=== PATIENT | female | born 1990 | race African-American/Black ===

== ENCOUNTER 2019-06-04 21:07 | Emergency (ER) | payer SELFPAY ==
[2019-06-04] MEDS ORDERED: Cyclobenzaprine 10 MG TAB ONE (21:49)
[2019-06-04] MEDS ORDERED: Ketorolac Tromethamine 60 MG/2 ML VIAL ONE (21:49)
== END 2019-06-04 22:10 | disposition home or self-care (01) ==
LOC: SCSER 21:07
DX: M54.5 Low back pain (principal); I10 Essential (primary) hypertension; J45.909 Unspecified asthma, uncomplicated; F41.9 Anxiety disorder, unspecified; F17.210 Nicotine dependence, cigarettes, uncomplicated
CPT/HCPCS: 96372; 99283; J1885

== ENCOUNTER 2020-01-08 14:36 | Emergency (ER) | payer SELFPAY ==
[2020-01-08 15:31] LABS: #Basophils 0.1 thou/uL (0.0-0.2); #Eosinphils 0.1 thou/uL (0.0-0.7); #Lymphocytes 1.8 thou/uL (1.20-3.40); #Monocytes 0.7 thou/uL (0.11-0.59); %Basophils 0.8 % (0.0-1.0); %Eosinophils 0.9 % (0.0-10.0); %Lymphocytes 16.8 % (21.0-51.0); %Monocytes 6.8 % (0.0-10.0); %Neutrophils 74.6 % (42.0-75.0); Mean Corpuscular HGB CONC 32.4 g/dL (32.0-36.0); Mean Corpuscular Hemoglobin 24.2 pg (27.0-31.0); Mean Corpuscular Volume 74.7 fL (78.0-98.0); Mean Platelet Volume 9.8 fL (7.4-10.4); Platelet Count 244 thou/uL (130-400); RBC Distribution Width 15.9 % (11.5-14.5); Red Blood Cell (RBC) Count 4.56 mill/uL (4.20-5.40); White Blood Cell (WBC) Count 10.8 thou/uL (4.8-10.8)
--- NOTE | 2020-01-08 15:44 | RAD ---
RADIOGRAPH CHEST 1 VIEW: DATE: 01/08/2020 HISTORY: 29-year-old female with chest pain FINDINGS: The visualized lung padilla are clear. The cardiomediastinal silhouette and hilar shadows are normal. The lateral costophrenic angles are sharp. The osseous structures appear normal. There is no pneumothorax. IMPRESSION: Negative.
[2020-01-08 15:49] LABS: ALT (SGPT) 9 U/L (8-55); AST (SGOT) 11 U/L (5-34); Alkaline Phosphatase 83 U/L (40-110); Anion Gap 11 mmol/L (10-20); BUN (Urea Nitrogen) 9 mg/dL (7.0-18.7); Bilirubin, Total 1.1 mg/dL (0.2-1.2); CK (CPK) 82 U/L (29-168); Calc. Creatinine Clearance 0 mL/min (70-130); Calcium 9.5 mg/dL (7.8-10.44); Carbon Dioxide 27 mmol/L (22-29); Chloride 103 mmol/L (98-107); Estimated GFR-MDRD 77; Globulin 3.2 g/dL (2.4-3.5); Glucose 76 mg/dL (70-105); Potassium 3.9 mmol/L (3.5-5.1); Protein, Total 7.2 g/dL (6.0-8.3); Sodium 137 mmol/L (136-145)
[2020-01-08 15:56] LABS: MDiff Complete? YES; Microcytosis SLIGHT = 6-15 cells (100X) (0-5/hpf); Platelet Morphology Comment Appears Adequate; Polychromasia SLIGHT = 2-3 cells (100X) (0-2/hpf); Target Cells SLIGHT = 2-5 cells (100X) (0-1/hpf); Tear Drops SLIGHT = 2-5 cells (100X) (0-1/hpf)
--- NOTE | 2020-01-08 16:59 | CT ---
CTA CHEST WITH CONTRAST: 01/08/20 Axial tomograms obtained following a pulmonary angio protocol with multiplanar reconstructions and 3D postprocessing. INDICATIONS: Chest pain with elevated D-dimer. Assess for pulmonary embolus. FINDINGS: Pulmonary artery opacification is not optimal. There is also soft tissue attenuation artifact which m ildly degrades the study. However, no evidence of pulmonary embolus identified. Thoracic aorta is unremarkable. The mediastinum is unremarkable. The lung padilla are clear. There is no evidence of infiltrate. Images through upper abdomen unremarka ble. IMPRESSION: 1. No evidence of pulmonary embolus. 2. No acute lung process identified. POS: [facility]
== END 2020-01-08 17:57 | disposition home or self-care (01) ==
LOC: ERS 14:36
DX: R07.9 Chest pain, unspecified (principal); I10 Essential (primary) hypertension; F41.9 Anxiety disorder, unspecified; J45.909 Unspecified asthma, uncomplicated; F17.210 Nicotine dependence, cigarettes, uncomplicated; Z79.899 Other long term (current) drug therapy
CPT/HCPCS: 36415; 71045; 71275; 80053; 82550; 84484; 85025; 85379; 93005

== ENCOUNTER 2024-03-23 07:28 | Inpatient (IN) | payer OTHER ==
[2024-03-23] MEDS ORDERED: levETIRAcetam 500 MG (5 mL) VIAL ONE (07:55)
[2024-03-23] MEDS ORDERED: Aspirin Chewable 81 MG TAB ONE ×2 (07:55→08:01)
[2024-03-23] MEDS ORDERED: Etomidate 40 MG (20 mL) VIAL ONE (08:30)
[2024-03-23] MEDS ORDERED: Rocuronium Bromide 10 MG/ML (10ML VIAL) ONE (08:30)
[2024-03-23] MEDS ORDERED: Ondansetron PF 4 MG/2 ML Vial ONE (08:31)
[2024-03-23] MEDS ORDERED: niCARdipine 25 MG/10 ML SDV ONE (08:44)
[2024-03-23] MEDS ORDERED: Propofol 1,000 MG/100 ML VIAL IV ONE (08:46)
[2024-03-23 08:52] LABS: #Basophils 0.04 10x3/uL (0.0-0.2); %Basophils 0.5 % (0.0-1.0); %Eosinophils 1.2 % (0.0-10.0); %Lymphocytes 25.1 % (21.0-51.0); %Monocytes 7.4 % (0.0-10.0); %Neutrophils 65.6 % (42.0-75.0); Hematocrit 33.2 % (36.0-47.0); Hemoglobin 10.3 g/dL (12.0-16.0); Mean Corpuscular Hemoglobin 21.2 pg (27.0-31.0); Mean Corpuscular Volume 68.3 fL (78.0-98.0); Mean Platelet Volume 9.7 fL (7.4-10.4); Platelet Count 288 10x3/uL (130-400); RBC Distribution Width 18.6 % (11.5-14.5); Red Blood Cell (RBC) Count 4.86 mill/uL (4.20-5.40)
[2024-03-23 08:58] LABS: ALT (SGPT) 12 U/L (8-55); AST (SGOT) 20 U/L (5-34); Albumin 3.4 g/dL (3.5-5.0); Alkaline Phosphatase 70 U/L (40-110); Anion Gap 10 mmol/L (10-20); BUN (Urea Nitrogen) 11 mg/dL (7.0-18.7); Bilirubin, Total 0.5 mg/dL (0.2-1.2); Calc. Creatinine Clearance 0 mL/min (70-130); Calcium 9.1 mg/dL (7.8-10.44); Carbon Dioxide 24 mmol/L (22-29); Chloride 105 mmol/L (98-107); Estimated GFR 96; Globulin 3.7 g/dL (2.4-3.5); Glucose 99 mg/dL (70-105); Potassium 4.1 mmol/L (3.5-5.1); Protein, Total 7.1 g/dL (6.0-8.3); Sodium 135 mmol/L (136-145)
[2024-03-23 08:59] LABS: Lipase 6 U/L (8-78); Magnesium 1.8 mg/dL (1.6-2.6)
[2024-03-23 09:00] LABS: Acetaminophen Less than 10 mcg/mL (10.0-30.0); Alcohol Less than 10.0 mg/dL (Less than 10); Salicylate Less than 8.0 mg/dL (15.0-30.0)
[2024-03-23 09:03] LABS: Troponin I Less than 0.010 ng/mL (< 0.028)
[2024-03-23] MEDS ORDERED: niCARdipine 25 MG in Sodium Chloride 0.9% 250 ML 250 ML IVPB PRN (09:10)
[2024-03-23] MEDS ORDERED: Labetalol HCl 100 MG/20 ML VIAL SLOW IVP PRN ×2 (09:10)
[2024-03-23] MEDS ORDERED: hydrALAZINE 20 MG/ML VIAL SLOW IVP PRN ×2 (09:10)
[2024-03-23] MEDS ORDERED: Electrolyte Replacement Protocol 1 EACH IVPB PRN (09:10)
[2024-03-23] MEDS ORDERED: Lidocaine 1% (PF) 30 ML VIAL ONE (09:13)
[2024-03-23] MEDS ORDERED: Heparin 10,000 UNITS/ 10 ML VIAL ONE (09:13)
[2024-03-23] MEDS ORDERED: Tenecteplase 50 MG ONE (09:14)
[2024-03-23] MEDS ORDERED: Ventilator Sedation Protocol 1 EACH FS PRN (09:15)
[2024-03-23] MEDS ORDERED: Midazolam HCl 2 mg/2 ml Vial ONE ×2 (09:22→10:58)
[2024-03-23 09:34] LABS: Bacteria/HPF Rare-Few HPF (None Seen); Bilirubin Negative (Negative); Blood, Urine Negative (Negative); CAUTI Indications for Culture Alt mental st,lethar; Clarity Clear (Clear); Glucose, Urine (Dipstick) Normal (Negative); Ketone, Urine Negative (Negative); Leukocyte 250 Leu/uL (Negative); Nitrite Negative (Negative); Protein, Urine (Dipstick) Negative (Neg-Trace); RBC/HPF 0-3 HPF (0-3); Specific Gravity, Urine 1.039 (1.002-1.036); Squamous Epithelial 0-3 HPF (0-3); Urobilinogen Normal mg/dL (Less than 2); pH, Urine 5.5 (5.0-9.0)
[2024-03-23 09:35] LABS: Urine Culture Reflex No No
[2024-03-23 09:40] LABS: Amphetamine Not Detected (NotDetected); Barbiturates Screen Not Detected (NotDetected); Benzodiazepine Screen Not Detected (NotDetected); Cocaine Metabolite Screen Not Detected (NotDetected); Methadone Not Detected (NotDetected); Methamphetamine Not Detected (NotDetected); Opiate Screen Not Detected (NotDetected); Oxycodone Screen Not Detected (NotDetected); Phencyclidine (PCP) Not Detected (NotDetected); THC/Cannabinoid Screen Detected (NotDetected); Tricyclic Screen Not Detected (NotDetected)
[2024-03-23] MEDS ORDERED: Propofol BOLUS 1,000 MG/100 ML VIAL IV PRN (09:45)
[2024-03-23] MEDS ORDERED: Morphine 2 MG/ML VIAL SLOW IVP PRN (09:45)
[2024-03-23] MEDS ORDERED: Fentanyl BOLUS 250 ML IVPB PRN (09:45)
[2024-03-23 09:46] LABS: Anisocytosis MODERATE=16-30 cells HPF (0-5); Hypochromia SLIGHT = 6-15 cells HPF (0-5); Microcytosis SLIGHT = 6-15 cells HPF (0-5); Ovalocytes SLIGHT = 2-5 cells HPF (0-1); Platelet Adequacy Comment Platelets Decreased; Polychromasia SLIGHT = 2-3 cells HPF (0-2)
[2024-03-23] MEDS ORDERED: Electrolyte Replacement Protocol FS PRN (10:00)
[2024-03-23] MEDS: niCARdipine 25 MG in Sodium Chloride 0.9% 250 ML 250 ML IVPB PRN (11:07)
[2024-03-23] MEDS: Propofol 1,000 MG/100 ML VIAL IV PRN (11:20)
[2024-03-23] MEDS ORDERED: Iopamidol-370 76% 500 ML MDV (1 ML CHARGE) ONE (11:42)
[2024-03-23] MEDS: Magnesium 2 GM/50 ML(in water) 2 GM in Premix 1 BAG IVPB SCH (11:50)
[2024-03-23] MEDS: Sodium Chloride 0.9% 1,000 ML IV SCH (12:00)
[2024-03-23 12:15] VITALS: BMI 40.0
[2024-03-23] MEDS: Lorazepam 2 MG/ML VIAL SLOW IVP PRN (13:05)
[2024-03-23] MEDS: Fentanyl CADD 100 ML IV SCH (13:27)
[2024-03-23] MEDS: Rosuvastatin 20 MG TAB PO SCH (20:11)
[2024-03-24 06:33] LABS: #Basophils Less than 0.03 10x3/uL (0.0-0.2); %Basophils 0.1 % (0.0-1.0); %Eosinophils 0.3 % (0.0-10.0); %Lymphocytes 8.7 % (21.0-51.0); %Monocytes 5.5 % (0.0-10.0); %Neutrophils 84.9 % (42.0-75.0); Hematocrit 30.3 % (36.0-47.0); Hemoglobin 9.2 g/dL (12.0-16.0); Mean Corpuscular HGB CONC 30.4 g/dL (32.0-36.0); Mean Corpuscular Hemoglobin 21.3 pg (27.0-31.0); Mean Corpuscular Volume 70.3 fL (78.0-98.0); Mean Platelet Volume 10.1 fL (7.4-10.4); Platelet Count 274 10x3/uL (130-400); RBC Distribution Width 18.8 % (11.5-14.5); Red Blood Cell (RBC) Count 4.31 mill/uL (4.20-5.40)
[2024-03-24 06:40] LABS: Hemoglobin A1c 5.3 % (4.0-6.0)
[2024-03-24 06:46] LABS: INR-International Normal Ratio 1.2; PTT 30.2 sec (22.9-36.1); Prothrombin Time 15.6 sec (12.0-14.7)
[2024-03-24 06:54] LABS: D-Dimer Test 4.91 mcg/mL (0.27-0.43)
[2024-03-24 07:01] LABS: Anion Gap 11 mmol/L (10-20); BUN (Urea Nitrogen) 8 mg/dL (7.0-18.7); Calc. Creatinine Clearance 200 mL/min (70-130); Calcium 8.6 mg/dL (7.8-10.44); Carbon Dioxide 21 mmol/L (22-29); Cardiac Risk 4.5 (Less than 4.5); Chloride 111 mmol/L (98-107); Cholesterol 156 mg/dl (< 200 Desired); Estimated GFR 109; Glucose 110 mg/dL (70-105); HDL Cholesterol 35 mg/dL (>60 Neg Risk); LDL Cholesterol, Calculated 106 mg/dL; Magnesium 1.9 mg/dL (1.6-2.6); Potassium 3.8 mmol/L (3.5-5.1); Sodium 139 mmol/L (136-145); Triglycerides 74 mg/dL (Less than 150)
[2024-03-24 07:21] LABS: Homocysteine 6.96 umol/L (5.08-15.39); Thyroid Stimulating Hormone 0.4722 uIU/mL (0.35-4.94)
[2024-03-24] MEDS: Pantoprazole 40 MG VIAL IVP SCH (08:48)
[2024-03-24] MEDS: Magnesium 2 GM/50 ML(in water) 2 GM in Premix 1 BAG IVPB SCH (08:48)
[2024-03-24 12:15] LABS: Iron 9 ug/dL (50-170); Iron Binding Capacity, Total 346 mcg/dL (265-497)
[2024-03-24 12:56] VITALS: BMI 39.5
[2024-03-24] MEDS: Aspirin 300 MG Suppository PR SCH (14:18)
[2024-03-24 15:22] LABS: HEX PHOS LA Tube 1 49.1 SEC; HEX PHOS LA Tube 2 37.2 SEC; Hexagonal Phospholipid Neut 11.9 SEC (0-8.0)
[2024-03-25 07:43] LABS: Hematocrit 29.1 % (36.0-47.0); Hemoglobin 8.8 g/dL (12.0-16.0); Mean Corpuscular HGB CONC 30.2 g/dL (32.0-36.0); Mean Corpuscular Hemoglobin 21.3 pg (27.0-31.0); Mean Corpuscular Volume 70.3 fL (78.0-98.0); Mean Platelet Volume 10.3 fL (7.4-10.4); Platelet Count 252 10x3/uL (130-400); RBC Distribution Width 19.1 % (11.5-14.5); Red Blood Cell (RBC) Count 4.14 mill/uL (4.20-5.40)
[2024-03-25 07:44] LABS: #Basophils 0.04 10x3/uL (0.0-0.2); %Basophils 0.3 % (0.0-1.0); %Eosinophils 0.7 % (0.0-10.0); %Lymphocytes 17.1 % (21.0-51.0); %Monocytes 6.2 % (0.0-10.0); %Neutrophils 75.2 % (42.0-75.0)
[2024-03-25 07:49] LABS: Anion Gap 13 mmol/L (10-20); BUN (Urea Nitrogen) 10 mg/dL (7.0-18.7); Calc. Creatinine Clearance 193 mL/min (70-130); Calcium 8.7 mg/dL (7.8-10.44); Carbon Dioxide 22 mmol/L (22-29); Chloride 108 mmol/L (98-107); Estimated GFR 104; Glucose 85 mg/dL (70-105); Potassium 3.9 mmol/L (3.5-5.1); Sodium 139 mmol/L (136-145)
[2024-03-25] MEDS: Acetaminophen 650 MG Suppository PR PRN (09:10)
[2024-03-25] MEDS: Aspirin 300 MG Suppository PR SCH (09:10)
[2024-03-25] MEDS: Magnesium 2 GM/50 ML(in water) 2 GM in Premix 1 BAG IVPB SCH (09:50)
[2024-03-25] MEDS ORDERED: Iron Sucrose Complex 100 MG in Sodium Chloride 0.9% 100 ML IVPB SCH (11:00)
[2024-03-25 11:42] LABS: SARS-CoV-2 E Target Negative; SARS-CoV-2 N2 Target Negative; SARS-CoV-2 NAA Rapid Test Not Detected (NotDetected); SARS-CoV-2 RdRP gene Negative
[2024-03-25] MEDS: Vancomycin (BATCH) 2.5 GM in Premix 1 BAG IVPB SCH (13:42)
[2024-03-25] MEDS: Cefepime 2 GM in Sodium Chloride 0.9% 100 ML IVPB SCH (13:49)
[2024-03-25] MEDS: Sodium Ferric Gluconate 125 MG in Sodium Chloride 0.9% 100 ML IVPB SCH ×2 (18:38→22:29)
[2024-03-25] MEDS: Vancomycin (BATCH) 2 GM in Premix 1 BAG IVPB SCH (23:54)
[2024-03-26] MEDS: Cefepime 2 GM in Sodium Chloride 0.9% 100 ML IVPB SCH (03:06)
[2024-03-26 06:55] LABS: #Basophils 0.03 10x3/uL (0.0-0.2); %Basophils 0.3 % (0.0-1.0); %Eosinophils 3.2 % (0.0-10.0); %Lymphocytes 20.1 % (21.0-51.0); %Monocytes 5.4 % (0.0-10.0); %Neutrophils 70.5 % (42.0-75.0); Hematocrit 27.1 % (36.0-47.0); Hemoglobin 8.3 g/dL (12.0-16.0); Mean Corpuscular HGB CONC 30.6 g/dL (32.0-36.0); Mean Corpuscular Hemoglobin 21.1 pg (27.0-31.0); Mean Platelet Volume 9.7 fL (7.4-10.4); Platelet Count 234 10x3/uL (130-400); RBC Distribution Width 18.8 % (11.5-14.5); Red Blood Cell (RBC) Count 3.93 mill/uL (4.20-5.40)
[2024-03-26 07:08] LABS: Anion Gap 11 mmol/L (10-20); BUN (Urea Nitrogen) 10 mg/dL (7.0-18.7); Calc. Creatinine Clearance 209 mL/min (70-130); Calcium 8.7 mg/dL (7.8-10.44); Carbon Dioxide 23 mmol/L (22-29); Chloride 110 mmol/L (98-107); Estimated GFR 117; Glucose 78 mg/dL (70-105); Potassium 3.8 mmol/L (3.5-5.1); Sodium 140 mmol/L (136-145); Vancomycin, Random 23.2 ug/mL (See Comment)
[2024-03-26] MEDS: Aspirin 81 mg Enteric Coated Tablet PO SCH (09:36)
[2024-03-26] MEDS: Vancomycin (BATCH) 1.75 GM in Premix 1 BAG IVPB SCH (12:19)
[2024-03-26] MEDS: Enoxaparin 30 MG (0.3 mL) SYRINGE SC SCH (12:20)
[2024-03-26] MEDS ORDERED: Ibuprofen 200 MG TAB PO PRN (21:34)
[2024-03-26] MEDS: Acetaminophen 325 MG TAB PO PRN (21:50)
[2024-03-27 04:23] LABS: Vancomycin, Random 36.6 ug/mL (See Comment)
[2024-03-27 04:26] LABS: Anion Gap 11 mmol/L (10-20); BUN (Urea Nitrogen) 9 mg/dL (7.0-18.7); Calc. Creatinine Clearance 218 mL/min (70-130); Calcium 8.5 mg/dL (7.8-10.44); Carbon Dioxide 23 mmol/L (22-29); Chloride 108 mmol/L (98-107); Estimated GFR 118; Glucose 80 mg/dL (70-105); Potassium 3.6 mmol/L (3.5-5.1); Sodium 138 mmol/L (136-145)
[2024-03-27 04:35] LABS: #Basophils 0.03 10x3/uL (0.0-0.2); %Basophils 0.4 % (0.0-1.0); %Eosinophils 4.2 % (0.0-10.0); %Lymphocytes 26.9 % (21.0-51.0); %Monocytes 6.5 % (0.0-10.0); %Neutrophils 61.4 % (42.0-75.0); Hematocrit 26.2 % (36.0-47.0); Hemoglobin 8.1 g/dL (12.0-16.0); Mean Corpuscular HGB CONC 30.9 g/dL (32.0-36.0); Mean Corpuscular Hemoglobin 21.2 pg (27.0-31.0); Mean Corpuscular Volume 68.6 fL (78.0-98.0); Mean Platelet Volume 10.1 fL (7.4-10.4); Platelet Count 240 10x3/uL (130-400); RBC Distribution Width 18.6 % (11.5-14.5); Red Blood Cell (RBC) Count 3.82 mill/uL (4.20-5.40)
[2024-03-27] MEDS: Aspirin 81 mg Enteric Coated Tablet PO SCH (07:48)
[2024-03-27] MEDS: Amlodipine 5 MG TAB PO SCH (08:47)
[2024-03-27 09:52] VITALS: BP 156/107
[2024-03-27 12:36] VITALS: TEMP 98.4
[2024-03-27 12:44] LABS: ANA Symphony (Qualitative) Negative (Negative); ANA Symphony (Quantitative) 0.2 Ratio (< 0.7 Negative); dsDNA IgG Antibody 2.3 IU/mL (<10 Negative)
[2024-03-27 14:25] LABS: Cardiolipin IgA Ab 4.8 APL-U/mL (<14 Negative); Cardiolipin IgG Ab 1.4 GPL-U/mL (<10 Negative); EliA APS New Method **** NEW METHOD ****
== END 2024-03-27 15:50 | disposition home or self-care (01) | DRG 23 ==
LOC: ERS 07:28 → SUATTDRO 07:28 → CCU 09:25
PROVIDERS: ADMIT Internal Medicine; ATTEND Internal Medicine
PROC: 03CG3ZZ Extirpation of Matter from Intracranial Artery, Percutaneous Approach (ICD-10-PCS; principal; 2024-03-23)
PROC: 3E03317 Introduction of Other Thrombolytic into Peripheral Vein, Percutaneous Approach (ICD-10-PCS; 2024-03-23)
PROC: 0BH17EZ Insertion of Endotracheal Airway into Trachea, Via Natural or Artificial Opening (ICD-10-PCS; 2024-03-23)
PROC: 5A1935Z Respiratory Ventilation, Less than 24 Consecutive Hours (ICD-10-PCS; 2024-03-23)
PROC: 4A00X4Z Measurement of Central Nervous Electrical Activity, External Approach (ICD-10-PCS; 2024-03-24)
DX: I63.512 Cerebral infarction due to unspecified occlusion or stenosis of left middle cerebral artery (principal); J96.01 Acute respiratory failure with hypoxia; E87.1 Hypo-osmolality and hyponatremia; J98.11 Atelectasis; G81.93 Hemiplegia, unspecified affecting right nondominant side; F12.90 Cannabis use, unspecified, uncomplicated; E66.9 Obesity, unspecified; D50.9 Iron deficiency anemia, unspecified; Z79.82 Long term (current) use of aspirin; Z79.899 Other long term (current) drug therapy; Z68.37 Body mass index [BMI] 37.0-37.9, adult
CPT/HCPCS: 31500; 36415; 36416; 43753; 51702; 61645; 70450; 70496; 70498; 70551; 71045; 80048; 80053; 80061; 80202; 80306; 80307; 81001; 82728; 83036; 83090; 83540; 83550; 83690; 83735; 84443; 84484; 85025; 85300; 85303; 85305; 85307; 85598; 85610; 85730; 86038; 86147; 86225; 87040; 93005; 93306; 94002; 94003; 95816; 95819; 96365; 96368; 96374; 96375; C1769; C1887; C1894; C9113; J0692; J1644; J1650; J1953; J2001; J2060; J2250; J2405; J2704; J2916; J3010; J3101; J3370; J3475; J7050; Q9967; U0002

== ENCOUNTER 2024-06-07 23:32 | Emergency (ER) | payer OTHER | END 2024-06-08 00:04 | disposition home or self-care (01) | LOC: ERS 23:32 | DX: T63.301A Toxic effect of unspecified spider venom, accidental (unintentional), initial encounter (principal); L02.91 Cutaneous abscess, unspecified; I10 Essential (primary) hypertension; F17.210 Nicotine dependence, cigarettes, uncomplicated; Z86.73 Personal history of transient ischemic attack (TIA), and cerebral infarction without residual deficits | CPT/HCPCS: 99282 ==